=== PATIENT | female | born 1960 | race Caucasian/White ===

== ENCOUNTER 2017-03-27 21:22 | Emergency (ER) | payer OTHER ==
[2017-03-27 21:29] VITALS: RESP 16
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
[2017-03-28 00:19] VITALS: BP 124/79; PULSE 57; TEMP 98.6; O2SAT 99
== END 2017-03-28 00:18 | disposition home or self-care (01) ==
DX: S29.9XXA Unspecified injury of thorax, initial encounter (principal); V46.5XXA Car driver injured in collision with other nonmotor vehicle in traffic accident, initial encounter; Y92.410 Unspecified street and highway as the place of occurrence of the external cause; Y99.8 Other external cause status; Y93.89 Activity, other specified